=== PATIENT | male | born 1970 | race Caucasian/White ===

== ENCOUNTER 2020-10-05 05:22 | Emergency (ER) | payer MEDICAID ==
[~2020-10-05] VITALS: Ht 175.3 cm; Wt 68.2 kg
[2020-10-05] MEDS ORDERED: azithromycin/NS 500mg/250ml 250 ML IV ONE (05:35)
[2020-10-05] MEDS ORDERED: CefTRIAXone/D5W-Rocephin 1gm 50 ML IV ONE (05:35)
[2020-10-05] MEDS ORDERED: normal saline 1000ML IV soln IV ONE (05:35)
[2020-10-05] MEDS ORDERED: acetaminophen 325mg tablet PO STA (05:35)
--- NOTE | 2020-10-05 07:12 | NUR ---
Pt gave permission for Michael Smith to have information. Michael said that when the pt is ready to be discharged to go ahead and give him a call and he will come pick him up.
[2020-10-05 07:31] LABS: BASOPHILS % (AUTO) 0 % (0-1); EOSINOPHILS % (AUTO) 0 % (0-6); HEMATOCRIT 34.5 % (42.0-52.0); HEMOGLOBIN 11.7 g/dl (14.0-17.9); LYMPHOCYTES # (AUTO) 1.1 X10'3 (1.1-4.8); LYMPHOCYTES % (AUTO) 4.3 % (21-51); MEAN CORPUSCULAR HEMOGLOBIN 29.7 PG (27.0-31.0); MEAN CORPUSCULAR HGB CONC 33.9 g/dL (33.0-36.5); MEAN CORPUSCULAR VOLUME 87.4 FL (78-98); MEAN PLATELET VOLUME 9.7 FL (7.4-10.4); MONOCYTES # (AUTO) 0.7 X10'3 (0-0.9); NEUTROPHILS # (AUTO) 22.9 X10'3 (1.8-7.7); NEUTROPHILS % (AUTO) 92.7 % (42-75); PLATELET COUNT 278 X10'3 (140-440); RED BLOOD COUNT 3.95 X10'6 (4.70-6.10); WHITE BLOOD COUNT 24.7 X10'3 (4.5-11.0)
[2020-10-05 07:33] LABS: CLARITY,URINE CLEAR (Clear); COLOR,URINE YELLOW (Yellow); GLUCOSE, URINE 100 mg/dl (Neg); KETONES,URINE TRACE mg/dl (Neg); LEUKOCYTE ESTERASE ,URINE NEGATIVE (Neg); NITRITES, URINE NEGATIVE (Neg); OCCULT BLOOD,URINE SMALL (Neg); PH,URINE 5.5 (4.8-8.0); PROTEIN,URINE 100 mg/dl (Neg); UROBILINOGEN,URINE >=8.0 E.U/dL (0.2-1.0)
[2020-10-05 07:43] LABS: ALANINE AMINOTRANSFERASE 45 U/L (12-78); ALBUMIN/GLOBULIN RATIO 0.4 (1.1-1.5); ALKALINE PHOSPHATASE 134 IU/L (46-116); ANION GAP 9 (8-16); ASPARTATE AMINO TRANSFERASE 27 U/L (10-37); BILIRUBIN,TOTAL 0.8 MG/DL (0.1-1.0); BLOOD UREA NITROGEN 16 MG/DL (7-18); BUN/CREATININE RATIO 15.8 (5.4-32.0); CALCIUM 8.8 MG/DL (8.5-10.1); CHLORIDE 93 MMOL/L (99-107); CREATININE 1.01 MG/DL (0.60-1.10); GLUCOSE 198 MG/DL (70-104); MAGNESIUM 2.3 MG/DL (1.5-2.4); POTASSIUM 3.1 MMOL/L (3.5-5.1); SODIUM 129 MMOL/L (135-145); TOTAL CARBON DIOXIDE 26.8 MMOL/L (24-32); TOTAL PROTEIN 7.5 G/DL (6.4-8.2); eGFR 78 ML/MIN
[2020-10-05 07:59] LABS: UA COLLECTION TYPE URINAL
[2020-10-05 08:02] LABS: COARSE GRANULAR CAST 0-3 /LPF (NEGATIVE)
[2020-10-05 08:03] LABS: MUCUS STRANDS FEW /LPF (Neg); SQUAMOUS EPITHELIAL CELL,UR FEW /LPF (FEW)
[2020-10-05 08:05] LABS: WBC,URINE 0-4 /HPF (0-4)
[2020-10-05 08:06] LABS: BACTERIA,URINE FEW /HPF (Neg)
[2020-10-05 09:10] LABS: TOTAL CELLS COUNTED 100
[2020-10-05 09:11] LABS: PLATELET ESTIMATE NORMAL
[2020-10-05] MEDS ORDERED: normal saline 1000ML IV soln IVB ONE (11:20)
--- NOTE | 2020-10-05 11:34 | NUR ---
Hospitalist was in room to speak with pt
[2020-10-05] MEDS ORDERED: potassium Cl 40MEQ/1/2NS 520ml 520 ML IV PRN ×2 (11:35)
[2020-10-05] MEDS ORDERED: normal saline 1000ml 1,000 ML IV SCH (11:35)
[2020-10-05] MEDS ORDERED: magnesium 4gm in 100ml NS 100 ML IV PRN (11:35)
[2020-10-05] MEDS ORDERED: magnesium Cl slow-release 64mg tablet PO PRN (11:35)
[2020-10-05] MEDS ORDERED: ondansetron/PF 4mg/2ml inj IV PRN (11:35)
[2020-10-05] MEDS ORDERED: potassium Cl 20 mEq SR tablet PO PRN ×2 (11:35)
[2020-10-05] MEDS ORDERED: HYDROcodone/acetaminophen 10/325mg tab PO PRN (11:35)
[2020-10-05] MEDS ORDERED: acetaminophen 325mg tablet PO PRN ×2 (11:35)
[2020-10-05] MEDS ORDERED: HYDROcodone/acetaminophen 5mg/325mg tablet PO PRN (11:35)
[2020-10-05] MEDS ORDERED: magnesium 2GM in 50ml NS 50 ML IV PRN (11:35)
[2020-10-05] MEDS ORDERED: morphine 2 MG/ML inj. syringe IV PRN ×2 (11:35)
[2020-10-05 11:39] VITALS: BP 125/79
[2020-10-05] MEDS ORDERED: iohexol 300mg/ml 100ml inj. ONE (11:39)
--- NOTE | 2020-10-05 11:48 | NUR ---
pt to radiology via w/c
[2020-10-05 12:27] LABS: HEMOGLOBIN A1C 5.8 % (4.5-6.2)
--- NOTE | 2020-10-05 12:41 | NUR ---
pt standing in the door to his room, states he wants to leave. call out to dr eden.
--- NOTE | 2020-10-05 12:42 | NUR ---
nurse spoke with dr eden, pt leaving a.
--- NOTE | 2020-10-05 12:49 | NUR ---
DR. EARLY HERE TO SPEAK WITH PATIENT RE: TREATMENT PLAN AND ADMISSION NECESSITY.
[2020-10-05] MEDS ORDERED: DOXY100C43 PO (12:58)
--- NOTE | 2020-10-05 13:02 | NUR ---
DR EARLY WAS IN TO SPEAK WITH PT, PT STILL INSISTS ON LEAVING AMA. PT SIGNED AMA FORM
[2020-10-05] MEDS ORDERED: docusate sod 100mg capsule PO SCH (20:00)
[2020-10-05] MEDS ORDERED: heparin, porcine 5000 units/ml vial SQ SCH (20:00)
[2020-10-05] MEDS ORDERED: K and/or MAG REPLACEMENT MC SCH (20:00)
[2020-10-06] MEDS ORDERED: pantoprazole 40mg Tablet.DR PO SCH (07:30)
[2020-10-06] MEDS ORDERED: azithromycin/NS 500mg/250ml 250 ML IV SCH (08:00)
[2020-10-06] MEDS ORDERED: CefTRIAXone 2gm/D5W 50ml BAG 50 ML IV SCH (08:00)
== END 2020-10-05 13:43 | disposition left against medical advice (07) ==
LOC: ER 05:23 → ED HOLD 11:34 → UNDOADMIN 11:34 → UNDODISIN 13:02
PROC: BW251ZZ Computerized Tomography (CT Scan) of Chest, Abdomen and Pelvis using Low Osmolar Contrast (ICD-10-PCS; principal; 2020-10-05)
DX: A41.9 Sepsis, unspecified organism (principal); J18.9 Pneumonia, unspecified organism; F15.90 Other stimulant use, unspecified, uncomplicated; E87.6 Hypokalemia; E87.1 Hypo-osmolality and hyponatremia; F17.210 Nicotine dependence, cigarettes, uncomplicated; Z20.822 Contact with and (suspected) exposure to COVID-19; Z53.29 Procedure and treatment not carried out because of patient's decision for other reasons; F11.90 Opioid use, unspecified, uncomplicated; R07.81 Pleurodynia
CPT/HCPCS: 36415; 71045; 71260; 74177; 80053; 81001; 83036; 83605; 83735; 84145; 85007; 85025; 87040; 87077; 87186; 87635; 93005; 96361; 96365; 96367; 99285; C9803; J0456; J0696; J7030; Q9967; G0378